=== PATIENT | female | born 1995 | race Two or more races ===

== ENCOUNTER 2023-11-24 21:16 | Emergency (ER) | payer OTHER ==
[~2023-11-24] VITALS: Ht 149.9 cm; Wt 66.2 kg
[~2023-11-24 21:16] MED LIST: PRENATAL TABLE1 EAC5
[2023-11-25] MEDS ORDERED: MEPERIDINE HCL/PF 25 MG/ML VIAL IM STA (01:26)
[2023-11-25] MEDS ORDERED: SODIUM CHLORIDE 0.45 % 500 ML IV ONE (01:30)
[2023-11-25] MEDS ORDERED: CEFTRIAXONE SODIUM 1,000 MG VIAL IV STA (01:45)
[2023-11-25] MEDS ORDERED: ACETAMINOPHEN 500 MG GEL..CAP PO ONE (02:18)
[2023-11-25 02:19] LABS: HEMATOCRIT 35.5 % (36.0-45.00); HEMOGLOBIN 12.5 g/dL (12.0-15.00); MEAN CELL VOLUME 80.9 fL (80.00-100.00); MEAN CORPUSCULAR HEMOGLOBIN 28.4 pg (27.00-32.0); MEAN CORPUSCULAR HGB CONC 35.1 g/dl (32.0-36.0); PLATELET COUNT 273 K/uL (150-450); RED BLOOD COUNT 4.38 M/uL (4.00-6.00); RED CELL DISTRIBUTION WIDTH 15.5 % (11.5-14.5)
[2023-11-25 02:49] LABS: ALBUMIN 3.2 gm/dL (3.4-5.0); BILIRUBIN TOTAL 0.25 mg/dL (0.3-1.2); CALCIUM 9.1 mg/dL (8.5-10.1); CREATININE SERUM 0.34 mg/dL (0.55-1.02); GFR 229.26; GLOBULINA 3.6 G/DL (2.4-3.5); POTASSIUM 3.7 mEq/L (3.5-5.1); TOTAL PROTEIN 6.8 gm/dL (6.4-8.2)
[2023-11-25 03:35] LABS: PH,URINE 6.5 (5.0-8.0); URINE APPEARANCE Clear; URINE BILIRRUBIN Negative (NEGATIVE); URINE BLOOD Negative; URINE COLOR Yellow; URINE GLUCOSE Negative (NEGATIVE); URINE LEUKOCYTE Trace; URINE NITRATE Negative; URINE PROTEIN Negative (NEGATIVE)
[2023-11-25 03:39] LABS: URINE BACTERIA 96.9 uL (0.0-1933); URINE EPITHELIAL CELLS 6.7 uL (0.0-38.8); URINE WBC 6.6 uL (0.0-23.2)
[2023-11-25 03:44] LABS: URINE RBC 0.9 uL (0.0-20.8)
[2023-11-25] MEDS ORDERED: CEFADROXIL500 MG PO (08:56)
== END 2023-11-25 09:18 ==
LOC: ER 21:17
PROVIDERS: General Practice
DX: O99.891 Other specified diseases and conditions complicating pregnancy (principal); Z3A.17 17 weeks gestation of pregnancy; R30.0 Dysuria
CPT/HCPCS: 36415; 76770; 76805; 76819; 96365; 96372; 99284; J0696; J3490

== ENCOUNTER → 2023-12-21 | Outpatient (CLI) | payer OTHER ==
[~2023-12-21] MED LIST changes: +CEFADROXIL500 MG PO
== END | disposition home or self-care (01) ==
LOC: PRENATAL 07:57
PROVIDERS: ATTEND Obstetrics & Gynecology Maternal & Fetal Medicine
DX: O35.9XX0 Maternal care for (suspected) fetal abnormality and damage, unspecified, not applicable or unspecified (principal); O35.3XX0 Maternal care for (suspected) damage to fetus from viral disease in mother, not applicable or unspecified; O44.02 Complete placenta previa NOS or without hemorrhage, second trimester; Z3A.20 20 weeks gestation of pregnancy; Z87.51 Personal history of pre-term labor

== ENCOUNTER → 2024-01-22 11:53 | Outpatient (CLI) | payer OTHER | END | disposition home or self-care (01) | LOC: PRENATAL 11:53 | PROVIDERS: ATTEND Obstetrics & Gynecology Maternal & Fetal Medicine | DX: O26.842 Uterine size-date discrepancy, second trimester (principal); O28.3 Abnormal ultrasonic finding on antenatal screening of mother; O09.219 Supervision of pregnancy with history of pre-term labor, unspecified trimester ==

== ENCOUNTER 2024-02-14 18:06 | Outpatient (CLI) | payer OTHER ==
[2024-02-14 16:21] VITALS: BP 104/63
[2024-02-14 18:38] LABS: HEMOGLOBIN 11.6 g/dL (12.0-15.00); MEAN CELL VOLUME 80.6 fL (80.00-100.00); MEAN CORPUSCULAR HEMOGLOBIN 28.3 pg (27.00-32.0); MEAN CORPUSCULAR HGB CONC 35.1 g/dl (32.0-36.0); PLATELET COUNT 259 K/uL (150-450); RED BLOOD COUNT 4.09 M/uL (4.00-6.00); RED CELL DISTRIBUTION WIDTH 15.7 % (11.5-14.5)
[2024-02-14 18:39] LABS: PH,URINE 7.5 (5.0-8.0); URINE APPEARANCE Cloudy; URINE BILIRRUBIN Negative (NEGATIVE); URINE BLOOD Negative; URINE COLOR Yellow; URINE GLUCOSE Negative (NEGATIVE); URINE KETONE Trace (NEGATIVE); URINE LEUKOCYTE Large; URINE NITRATE Negative; URINE PROTEIN Negative (NEGATIVE); URINE UROBILINOGEN 0.2 E.U./dl
[2024-02-14 18:43] LABS: URINE BACTERIA 6467.5 uL (0.0-1933); URINE EPITHELIAL CELLS 81.3 uL (0.0-38.8); URINE WBC 26.5 uL (0.0-23.2)
[2024-02-14 18:45] LABS: URINE RBC 1.2 uL (0.0-20.8)
[2024-02-14] MEDS ORDERED: RINGERS SOLUTION,LACTATED 1,000 ML IV SCH (18:45)
[2024-02-14 18:56] LABS: URINE CRYSTALS FEW /HPF; URINE MUCUS MODERATE
[2024-02-14 19:05] LABS: ALBUMIN 2.8 gm/dL (3.4-5.0); BILIRUBIN TOTAL 0.3 mg/dL (0.3-1.2); CALCIUM 9.3 mg/dL (8.5-10.1); CREATININE SERUM 0.31 mg/dL (0.55-1.02); GFR 255.05; GLOBULINA 3.4 G/DL (2.4-3.5); POTASSIUM 3.93 mEq/L (3.5-5.1); TOTAL PROTEIN 6.2 gm/dL (6.4-8.2)
[2024-02-14 19:47] VITALS: BP 98/60
[2024-02-14 23:46] VITALS: BP 91/56
[2024-02-15 03:14] VITALS: BP 94/59
[2024-02-15 06:22] VITALS: BP 87/52; O2SAT 98
[2024-02-15 08:29] VITALS: BP 87/52
== END 2024-02-15 09:19 | disposition home or self-care (01) ==
LOC: OBS/DEL 18:06
PROVIDERS: Specialist; ATTEND Obstetrics & Gynecology
DX: O23.43 Unspecified infection of urinary tract in pregnancy, third trimester (principal); N39.0 Urinary tract infection, site not specified; Z3A.29 29 weeks gestation of pregnancy

== ENCOUNTER 2024-03-16 08:43 | Outpatient (CLI) | payer OTHER | END 2024-03-16 08:45 | disposition home or self-care (01) | LOC: PRENATAL 08:43 | PROVIDERS: ATTEND Obstetrics & Gynecology Maternal & Fetal Medicine | DX: O26.849 Uterine size-date discrepancy, unspecified trimester (principal); O36.8199 Decreased fetal movements, unspecified trimester, other fetus; O28.3 Abnormal ultrasonic finding on antenatal screening of mother; O09.219 Supervision of pregnancy with history of pre-term labor, unspecified trimester; Z3A.32 32 weeks gestation of pregnancy ==

== ENCOUNTER → 2024-03-23 | Outpatient (CLI) | payer OTHER ==
[~2024-03-23] VITALS: Ht 149.9 cm; Wt 73.9 kg
[~2024-03-23] MED LIST changes: +AMPICILLIN SODIUM 1,000 MG VIAL IV SCH; +AMPICILLIN SODIUM 2,000 MG VIAL IV ONE; +BETAMETHASONE ACETATE,SOD PHOS 30 MG/5 ML ML IM NR; +BETAMETHASONE ACETATE,SOD PHOS 30 MG/5 ML ML IM ONE; +RINGERS SOLUTION,LACTATED 1,000 ML IV SCH
[2024-03-23 02:30] VITALS: BP 110/72
[2024-03-23 04:17] LABS: URINE APPEARANCE Clear; URINE BILIRRUBIN Negative (NEGATIVE); URINE BLOOD Negative; URINE COLOR Yellow; URINE GLUCOSE Negative (NEGATIVE); URINE KETONE Negative (NEGATIVE); URINE LEUKOCYTE Small; URINE NITRATE Negative; URINE PROTEIN Negative (NEGATIVE)
[2024-03-23 04:18] LABS: URINE BACTERIA 560.4 uL (0.0-1933); URINE EPITHELIAL CELLS 27.2 uL (0.0-38.8); URINE WBC 33.2 uL (0.0-23.2)
[2024-03-23 04:28] LABS: MEAN CORPUSCULAR HGB CONC 34.6 g/dl (32.0-36.0); PLATELET COUNT 245 K/uL (150-450); RED BLOOD COUNT 3.97 M/uL (4.00-6.00); RED CELL DISTRIBUTION WIDTH 15.7 % (11.5-14.5)
[2024-03-23 04:35] LABS: HEMOGLOBIN 10.7 g/dL (12.0-15.00); MEAN CORPUSCULAR HEMOGLOBIN 26.9 pg (27.00-32.0)
[2024-03-23 04:39] LABS: INR 0.94; PARTIAL THROMBOPLASTIN TIME 25.9 SECONDS (22.0-34.0); PROTHROMBIN TIME 10.3 SECONDS (9.0-11.5)
[2024-03-23 04:58] LABS: URINE RBC 1.5 uL (0.0-20.8)
[2024-03-23 07:29] VITALS: BP 108/70
[2024-03-23 12:03] VITALS: BP 103/62
[2024-03-23 15:49] VITALS: BP 107/68
[2024-03-23 20:12] VITALS: BP 114/65
[2024-03-23 23:21] VITALS: BP 96/58
[2024-03-24 03:57] VITALS: BP 92/54
[2024-03-24 07:29] VITALS: BP 93/54
== END | disposition home or self-care (01) ==
LOC: LDR 03:04 → OBS/DEL 03:04 → LDR 03-24 09:08 → EDSTATUS 04-22 16:01
PROVIDERS: ATTEND Obstetrics & Gynecology
DX: O23.43 Unspecified infection of urinary tract in pregnancy, third trimester (principal); N39.0 Urinary tract infection, site not specified; O99.013 Anemia complicating pregnancy, third trimester; Z3A.28 28 weeks gestation of pregnancy; O36.8199 Decreased fetal movements, unspecified trimester, other fetus; O60.00 Preterm labor without delivery, unspecified trimester; Z3A.33 33 weeks gestation of pregnancy

== ENCOUNTER 2024-04-09 20:07 | Inpatient (IN) | payer OTHER ==
[~2024-04-09] VITALS: Ht 149.9 cm; Wt 64.9 kg
[2024-04-09 19:41] VITALS: BP 101/70
[~2024-04-09 20:07] MED LIST changes: -AMPICILLIN SODIUM 1,000 MG VIAL IV SCH; -AMPICILLIN SODIUM 2,000 MG VIAL IV ONE; -BETAMETHASONE ACETATE,SOD PHOS 30 MG/5 ML ML IM NR; -BETAMETHASONE ACETATE,SOD PHOS 30 MG/5 ML ML IM ONE; -RINGERS SOLUTION,LACTATED 1,000 ML IV SCH
[2024-04-09] MEDS ORDERED: RINGERS SOLUTION,LACTATED 1,000 ML IV SCH (20:15)
[2024-04-09 20:45] VITALS: BP 101/70
[2024-04-09 20:48] LABS: PH,URINE 6.5 (5.0-8.0); URINE APPEARANCE Clear; URINE BACTERIA 2660.6 uL (0.0-1933); URINE BILIRRUBIN Negative (NEGATIVE); URINE BLOOD Negative; URINE COLOR Yellow; URINE EPITHELIAL CELLS 49.7 uL (0.0-38.8); URINE GLUCOSE Negative (NEGATIVE); URINE KETONE Negative (NEGATIVE); URINE LEUKOCYTE Moderate; URINE NITRATE Negative; URINE PROTEIN Negative (NEGATIVE); URINE WBC 101.5 uL (0.0-23.2)
[2024-04-09 20:51] LABS: HEMATOCRIT 32.4 % (36.0-45.00); HEMOGLOBIN 11.4 g/dL (12.0-15.00); MEAN CELL VOLUME 76.9 fL (80.00-100.00); MEAN CORPUSCULAR HGB CONC 35.1 g/dl (32.0-36.0); PLATELET COUNT 235 K/uL (150-450); RED BLOOD COUNT 4.21 M/uL (4.00-6.00); RED CELL DISTRIBUTION WIDTH 16.2 % (11.5-14.5)
[2024-04-09] MEDS ORDERED: OXYTOCIN 10 UNITS/ML VIAL IV ONE (21:00)
[2024-04-09] MEDS ORDERED: ERYTHROMYCIN BASE OPHT 1GM EACH TUBE OP ONE (21:00)
[2024-04-09 21:15] LABS: INR 0.94; PARTIAL THROMBOPLASTIN TIME 25.6 SECONDS (22.0-34.0); PROTHROMBIN TIME 10.3 SECONDS (9.0-11.5)
[2024-04-09 21:28] LABS: ALBUMIN 2.8 gm/dL (3.4-5.0); BILIRUBIN TOTAL 0.39 mg/dL (0.3-1.2); CALCIUM 8.8 mg/dL (8.5-10.1); CREATININE SERUM 0.39 mg/dL (0.55-1.02); GFR 195.69; GLOBULINA 3.5 G/DL (2.4-3.5); POTASSIUM 4.05 mEq/L (3.5-5.1); TOTAL PROTEIN 6.3 gm/dL (6.4-8.2)
[2024-04-09 21:33] LABS: URINE CAST 1.22 uL (0.0-1.40); URINE RBC 1.8 uL (0.0-20.8)
[2024-04-09 21:35] LABS: URINE YEAST NEGATIVE /hpf
[2024-04-09] MEDS ORDERED: PROMETHAZINE HCL 50 MG/ML AMPUL IM PRN (22:15)
[2024-04-09] MEDS ORDERED: MEPERIDINE HCL/PF 50 MG/ML VIAL IM PRN (22:15)
[2024-04-09] MEDS ORDERED: MORPHINE SULFATE 4 MG/ML VIAL IV ONE ×2 (23:25→23:55)
[2024-04-10] MEDS ORDERED: MEPERIDINE HCL 25 MG/ML AMPUL IV ONE (00:25)
[2024-04-10 03:00] VITALS: BP 105/70
[2024-04-10] MEDS ORDERED: OxyCODONE HCL/APAP UD (PERCOCET) PO STA (05:54)
[2024-04-10 07:38] LABS: HEMOGLOBIN 9.5 g/dL (12.0-15.00); MEAN CELL VOLUME 77.9 fL (80.00-100.00); MEAN CORPUSCULAR HEMOGLOBIN 26.3 pg (27.00-32.0); MEAN CORPUSCULAR HGB CONC 33.8 g/dl (32.0-36.0); PLATELET COUNT 202 K/uL (150-450); RED CELL DISTRIBUTION WIDTH 16.2 % (11.5-14.5)
[2024-04-10] MEDS ORDERED: OxyCODONE HCL/APAP UD (PERCOCET) PO PRN (08:00)
[2024-04-10] MEDS ORDERED: PNV,CALCIUM 72/IRON/FOLIC ACID 1 TAB TABLET PO SCH (08:00)
[2024-04-10] MEDS ORDERED: DOCUSATE SODIUM 100MG CAP PO SCH (08:00)
[2024-04-10] MEDS ORDERED: SIMETHICONE 125 MG CAPSULE PO SCH (08:00)
[2024-04-10 08:04] VITALS: BP 106/69
[2024-04-10 16:00] VITALS: BP 106/66
[2024-04-11 01:42] VITALS: BP 99/67
[2024-04-11 07:55] VITALS: BP 102/65
[2024-04-11] MEDS ORDERED: MINERAL OIL 30 ML BLIST.PACK PO NR (11:00)
[2024-04-11] MEDS ORDERED: MAGNESIUM HYDROXIDE 30 ML BLIST.PACK PO NR (11:00)
[2024-04-11] MEDS ORDERED: BISACODYL 10 MG/SUPP.RECT SUPP.RECT RECTAL NR (11:00)
[2024-04-11] MEDS ORDERED: IBUprofen 600 MG TABLET PO SCH (12:00)
[2024-04-11 12:45] VITALS: BP 101/61
[2024-04-11 16:00] VITALS: BP 99/64
[2024-04-12 01:00] VITALS: BP 92/58
[2024-04-12 08:29] VITALS: BP 103/68
== END 2024-04-12 14:47 | disposition home or self-care (01) | DRG 785 ==
LOC: OB/GYN 20:07 → LDR 20:07 → OB/GYN 22:59
PROVIDERS: ADMIT Obstetrics & Gynecology; ATTEND Obstetrics & Gynecology
PROC: 0UB70ZZ Excision of Bilateral Fallopian Tubes, Open Approach (ICD-10-PCS; 2024-04-09)
PROC: 4A1HXCZ Monitoring of Products of Conception, Cardiac Rate, External Approach (ICD-10-PCS; 2024-04-09)
PROC: 10D00Z1 Extraction of Products of Conception, Low, Open Approach (ICD-10-PCS; principal; 2024-04-09 20:00)
DX: O98.32 Other infections with a predominantly sexual mode of transmission complicating childbirth (principal); A60.09 Herpesviral infection of other urogenital tract; Z30.2 Encounter for sterilization; Z3A.37 37 weeks gestation of pregnancy; Z20.822 Contact with and (suspected) exposure to COVID-19; Z37.0 Single live birth

== ENCOUNTER 2024-04-21 00:19 | Emergency (ER) | payer OTHER ==
[~2024-04-21] VITALS: Ht 149.9 cm; Wt 59.0 kg
[2024-04-21] MEDS ORDERED: ACETAMINOPHEN 500 MG GEL..CAP PO STA (02:59)
[2024-04-21 03:35] LABS: HEMATOCRIT 30.5 % (36.0-45.00); HEMOGLOBIN 10.4 g/dL (12.0-15.00); MEAN CELL VOLUME 77.5 fL (80.00-100.00); MEAN CORPUSCULAR HEMOGLOBIN 26.4 pg (27.00-32.0); MEAN CORPUSCULAR HGB CONC 34.1 g/dl (32.0-36.0); PLATELET COUNT 596 K/uL (150-450); RED BLOOD COUNT 3.94 M/uL (4.00-6.00); RED CELL DISTRIBUTION WIDTH 16.2 % (11.5-14.5)
[2024-04-21 03:45] LABS: INR 1.05; PARTIAL THROMBOPLASTIN TIME 28.6 SECONDS (22.0-34.0); PROTHROMBIN TIME 11.4 SECONDS (9.0-11.5)
[2024-04-21 03:50] LABS: ALBUMIN 2.8 gm/dL (3.4-5.0); BILIRUBIN TOTAL 0.27 mg/dL (0.3-1.2); CALCIUM 8.9 mg/dL (8.5-10.1); CREATININE SERUM 0.43 mg/dL (0.55-1.02); GFR 174.84; GLOBULINA 3.7 G/DL (2.4-3.5); POTASSIUM 3.29 mEq/L (3.5-5.1); TOTAL PROTEIN 6.5 gm/dL (6.4-8.2)
[2024-04-21 06:06] LABS: URINE APPEARANCE Clear; URINE BILIRRUBIN Negative (NEGATIVE); URINE BLOOD Moderate; URINE COLOR Yellow; URINE GLUCOSE Negative (NEGATIVE); URINE KETONE Negative (NEGATIVE); URINE LEUKOCYTE Large; URINE NITRATE Negative; URINE PROTEIN Negative (NEGATIVE)
[2024-04-21 06:09] LABS: URINE BACTERIA 248.2 uL (0.0-1933); URINE EPITHELIAL CELLS 53.7 uL (0.0-38.8); URINE WBC 303.4 uL (0.0-23.2)
[2024-04-21 06:50] LABS: URINE RBC 1.5 uL (0.0-20.8)
== END 2024-04-21 07:45 ==
LOC: ER 00:21
PROVIDERS: General Practice
DX: R68.83 Chills (without fever) (principal); Z20.822 Contact with and (suspected) exposure to COVID-19